=== PATIENT | female | born 1985 | race Caucasian/White ===

== ENCOUNTER 2016-04-10 14:38 | Outpatient (CLI) | payer OTHER ==
--- NOTE | 2016-04-10 16:25 | DIAGNOSTIC IMAGING REPORT ---
PROCEDURE: US COMPLETE PELVIC W/TRANSVAG INDICATION: Left pelvic pain, initial encounter TECHNIQUE: Transabdominal and endovaginal vu scale and color Doppler sonographic images of the female pelvis were obtained. COMPARISON: None. FINDINGS: TRANSABDOMINAL SCANS: Anteverted uterus measures 7.1 x 3.7 x 3.2 cm. Normal kidneys. TRANSVAGINAL SCANS: Myometrium is unremarkable. Normal endometrium measures 8.3 mm. Left ovary measures 2.7 x 1.4 x 2 cm with a 1.1 cm paraovarian cyst. There is a small amount of adjacent free fluid. Right ovary not visualized. No adnexal mass. IMPRESSION: 1. 1.1 cm left paraovarian cyst with small amount of adjacent free fluid 2. Right ovary not visualized
== END 2016-04-10 23:00 ==
LOC: US SRH 14:38
DX: N83.202 Unspecified ovarian cyst, left side (principal)

== ENCOUNTER 2016-04-16 07:55 | Outpatient (CLI) | payer OTHER ==
--- NOTE | 2016-04-16 10:04 | DIAGNOSTIC IMAGING REPORT ---
PROCEDURE: US ABDOMEN ULTRASOUND-COMPLETE INDICATION: ABD PAIN, initial encounter TECHNIQUE: Mcallister scale and color Doppler sonographic images of the abdomen were obtained. COMPARISON: Abdominal ultrasound 08/17/2015 FINDINGS: Liver, spleen, pancreas and gallbladder are normal. Normal CBD, 3 mm. Aorta and IVC are patent. Normal hepatopetal flow. Normal kidneys. Right kidney measures 11.1 cm and left kidney 12.6 cm. Ultrasound of the left lower quadrant (symptomatic area) shows no significant findings. IMPRESSION: 1. Normal abdominal ultrasound
== END 2016-04-16 23:00 ==
LOC: US SRH 07:55
DX: R10.9 Unspecified abdominal pain (principal)

== ENCOUNTER 2016-10-26 19:41 | Emergency (ER) | payer OTHER ==
--- NOTE | 2016-10-26 22:31 | DIAGNOSTIC IMAGING REPORT ---
PROCEDURE: US ABDOMEN ULTRASOUND-LIMITED INDICATION: Right abdominal pain. Nausea. Vomiting. TECHNIQUE: Mcallister scale and color Doppler sonographic images of the abdomen were obtained. COMPARISON: Compared to abdominal ultrasound 04/16/2016. FINDINGS: Gallbladder is normal. No evidence of gallstones. Common duct is normal (3 mm). Portions of the liver, pancreas, aorta, and right kidney are seen, and are normal. IMPRESSION: 1. Negative ultrasound of the gallbladder and right upper quadrant.
--- NOTE | 2016-10-26 22:33 | ED CLINICAL REPORT ---
Clinical Report - Physicians/Mid Levels [facility] [address] [place] [address] 10/26/2016 19:43 Patient: JANIS SOMMERS Time Seen: 19:57; initial patient contact, initial documentation, patient care assumed. Arrived- By private vehicle. Historian- patient. HISTORY OF PRESENT ILLNESS Chief Complaint: ABDOMINAL PAIN. This started today and is still present. It was abrupt in onset and has been constant. At its maximum, severity described as moderate. When seen in the E.D., severity described as moderate. Modifying factors. Not worsened by anything. Not relieved by anything. It is described as "pain", stabbing and cramping and it is described as located in the right upper quadrant, right abdomen and right lower quadrant. The patient has had nausea. No loss of appetite. She has had severe vomiting. The vomiting has occurred numerous times and has been bilious. No feculent emesis, blood-tinged emesis, coffee-grounds emesis, frankly bloody emesis or unusually dark emesis. She has had diarrhea. This has occurred numerous times. It has been watery and has been associated with cramps. No bloody, mucous containing or blood-tinged diarrhea. No recent travel. Similar symptoms previously: None. Recent medical care: Not recently seen/assessed. REVIEW OF SYSTEMS No constipation, black stools, hematemesis, difficulty with urination or pain with urination. No urinary frequency, abnormal bleeding, bloody stools, fever or chest pain. No difficulty breathing. Denies current . All systems otherwise negative, except as recorded above. PAST HISTORY See nurses notes. PROBLEMS: Fibromyalgia. --20:03 Alize Cochran. SOCIAL HISTORY Never smoker. Occasional alcohol use. No drug use. No recent travel. Is a local resident. FAMILY HISTORY Negative. ADDITIONAL NOTES The nursing notes have been reviewed with agreement regarding the chief complaint, HPI, ROS, PMH and patient medications and allergies. PHYSICAL EXAM Vital Signs: 10/26/2016 20:04 BP: 131/81. HR: 91. RR: 17. O2 saturation: 99%. Temp: 99.7 F. Have been reviewed as normal and appear to be correct. Appearance: Alert. Oriented X3. No acute distress. Eyes: Pupils equal, round and reactive to light. Eyes normal inspection. Neck: Normal inspection. Neck supple. CVS: Normal heart rate and rhythm. Heart sounds normal. Pulses normal. Respiratory: No respiratory distress. Breath sounds normal. Chest nontender. Abdomen: Soft. Mild tenderness in the right upper quadrant, right side of the abdomen and right lower quadrant. No guarding, rebound tenderness or Lei's, obturator or psoas sign present. Bowel sounds normal. No organomegaly. No mass. Mildly obese. Tenderness present. Back: Normal inspection. Skin: Skin warm and dry. Normal skin color. No rash. Normal skin turgor. Extremities: Extremities exhibit normal ROM. No lower extremity edema. Neuro: Oriented X 3. No motor deficit. No sensory deficit. LABS, X-RAYS, AND EKG Abdominal Sonogram: No acute disease. (verbal report given by [employer]). Interpretation time: 22:04. Laboratory Tests: Serum Qualitative: (PATRICE: 10/26/2016 20:25) ( [facility] [place] 21:08) Final results Test Result Flag Units (Reference) , SERUM NEGATIVE CBC w Diff: (PATRICE: 10/26/2016 20:25) ( [facility] [place] 20:48[place] Final results Test Result Flag Units (Reference) WHITE BLOOD COUNT 12.8 H K/uL (4.5-11.5) RED BLOOD COUNT 4.84 M/uL (4.00-5.20) HEMOGLOBIN 14.3 gm/dL (12.0-16.0) HEMATOCRIT 42.6 % (36.0-46.0) MEAN CELL VOLUME 88 fL (80-100) MEAN CORPUSCULAR HGB 30 pg (26-34) MEAN CORPUSCULAR HGB CONC 34 g/dL (31-37) RED CELL DISTRIBUTION WIDTH 12.7 % (11.6-14.8) PLATELET COUNT 305 K/uL (150-400) NEUTROPHIL % 84.8 H % (50-75) LYMPH % 7.5 L % (25-40) MONO % 5.2 % (3-14) EOSINOPHIL % 2.4 % (0-4) BASOPHIL % 0.1 % (0-2) Lipase: (PATRICE: 10/26/2016 20:25) ( [facility] [place] 21:12) Final results Test Result Flag Units (Reference) LIPASE 444 H U/L (73-393) AMYLASE 103 U/L (25-115) CMP: (PATRICE: 10/26/2016 20:25) ( [facility] [place]/26/2016 20:56) Final results Test Result Flag Units (Reference) GLUCOSE 89 mg/dL (70-110) BUN 15 mg/dL (7-18) CREATININE 0.6 mg/dL (0.6-1.3) Estimated GFR >60 mL/min Estimated GFR- >60 mL/min Note: Persistent reduction over 3 months in eGFR<60 mL/min/1.73 m2 defines CKD. Patients with eGFR values>=60 mL/min/1.73 m2 may also have CKD if evidence ofpersistent proteinuria. Additional information may be foundat www.kidney.org. SODIUM 143 mmol/L (136-145) POTASSIUM 4.0 mmol/L (3.5-5.1) CHLORIDE 105 mmol/L (98-107) CARBON DIOXIDE 25 mmol/L (21-32) CALCIUM 8.8 mg/dL (8.5-10.1) TOTAL PROTEIN 7.5 g/dL (6.4-8.2) ALBUMIN 3.8 g/dL (3.3-5.0) BILIRUBIN, TOTAL 0.2 mg/dL (0.0-1.0) ALKALINE PHOSPHATASE 76 U/L (46-116) AST (SGOT) 18 U/L (15-37) ALT (SGPT) 24 U/L (12-78) . PROGRESS AND PROCEDURES Patient counseled in person regarding the patient's stable condition, test results and diagnosis. Differential Diagnosis: I considered gastritis, peptic ulcer disease, gastroesophageal reflux disease, gastroparesis, Crohn's disease, ulcerative colitis, colonic obstruction, colon cancer, gastroenteritis, cholecystitis, pancreatitis, viral syndrome, enterocolitis, urinary tract infection, hepatitis, sepsis, drugs, hyperthyroidism, hyperparathyroidism and as a possible cause of vomiting in this patient. This is a partial list of diagnoses considered. Above considerations are based on history, physical exam, reassessment, laboratory data and other information. Differential diagnosis was discussed with patient. Disposition: Discharged home in good and improved condition (22:33). Condition: good and stable. CLINICAL IMPRESSION Acute noninfectious gastroenteritis. INSTRUCTIONS Take clear liquids only (frequent sips) for the next 24 hours until better. May continue medications with sips only. Advance diet as tolerated. No alcohol. Warnings: GENERAL WARNINGS: Return or contact your physician immediately if your condition worsens or changes unexpectedly, if not improving as expected, or if other problems arise. SPECIFICALLY, return if you develop pain in the abdomen or pelvis, fever, the inability to keep fluids down, blood in vomitus, blood in diarrhea, fainting or lightheadedness. Prescription Medications: Zofran 4 mg: Take 1 orally every six hours as needed for nausea/vomiting. Dispense ten (10). No refills. Substitution is permissible. Bentyl 20 mg tablets: take 1 orally every 6 hours as needed. Dispense thirty (30). No refills. Substitution is permissible. Ultram 50 mg tablets: take 1-2 orally every 6 hours as needed for pain. Dispense twenty (20). No refills. Substitution is permissible. Follow-up: Follow up with your doctor in about two days. Call for an appointment. Summary of care provided to patient. Understanding of the discharge instructions verbalized by patient. (Electronically signed by Camila English A.R.N.P. 10/26/2016 22:55)
--- NOTE | 2016-10-26 22:33 | ED CLINICAL REPORT ---
Clinical Report - Physicians/Mid Levels [facility] [address] [place] [address] 10/26/2016 19:43 Patient: JANIS SOMMERS Time Seen: 19:57; initial patient contact, initial documentation, patient care assumed. Arrived- By private vehicle. Historian- patient. HISTORY OF PRESENT ILLNESS Chief Complaint: ABDOMINAL PAIN. This started today and is still present. It was abrupt in onset and has been constant. At its maximum, severity described as moderate. When seen in the E.D., severity described as moderate. Modifying factors. Not worsened by anything. Not relieved by anything. It is described as "pain", stabbing and cramping and it is described as located in the right upper quadrant, right abdomen and right lower quadrant. The patient has had nausea. No loss of appetite. She has had severe vomiting. The vomiting has occurred numerous times and has been bilious. No feculent emesis, blood-tinged emesis, coffee-grounds emesis, frankly bloody emesis or unusually dark emesis. She has had diarrhea. This has occurred numerous times. It has been watery and has been associated with cramps. No bloody, mucous containing or blood-tinged diarrhea. No recent travel. Similar symptoms previously: None. Recent medical care: Not recently seen/assessed. REVIEW OF SYSTEMS No constipation, black stools, hematemesis, difficulty with urination or pain with urination. No urinary frequency, abnormal bleeding, bloody stools, fever or chest pain. No difficulty breathing. Denies current . All systems otherwise negative, except as recorded above. PAST HISTORY See nurses notes. PROBLEMS: Fibromyalgia. --20:03 Alize Cochran. SOCIAL HISTORY Never smoker. Occasional alcohol use. No drug use. No recent travel. Is a local resident. FAMILY HISTORY Negative. ADDITIONAL NOTES The nursing notes have been reviewed with agreement regarding the chief complaint, HPI, ROS, PMH and patient medications and allergies. PHYSICAL EXAM Vital Signs: 10/26/2016 20:04 BP: 131/81. HR: 91. RR: 17. O2 saturation: 99%. Temp: 99.7 F. Have been reviewed as normal and appear to be correct. Appearance: Alert. Oriented X3. No acute distress. Eyes: Pupils equal, round and reactive to light. Eyes normal inspection. Neck: Normal inspection. Neck supple. CVS: Normal heart rate and rhythm. Heart sounds normal. Pulses normal. Respiratory: No respiratory distress. Breath sounds normal. Chest nontender. Abdomen: Soft. Mild tenderness in the right upper quadrant, right side of the abdomen and right lower quadrant. No guarding, rebound tenderness or Lei's, obturator or psoas sign present. Bowel sounds normal. No organomegaly. No mass. Mildly obese. Tenderness present. Back: Normal inspection. Skin: Skin warm and dry. Normal skin color. No rash. Normal skin turgor. Extremities: Extremities exhibit normal ROM. No lower extremity edema. Neuro: Oriented X 3. No motor deficit. No sensory deficit. LABS, X-RAYS, AND EKG Abdominal Sonogram: No acute disease. (verbal report given by [employer] Interpretation time: 22:04. Laboratory Tests: Serum Qualitative: (PATRICE: 10/26/2016 20:25) ( [facility] [place] 21:08) Final results Test Result Flag Units (Reference) , SERUM NEGATIVE CBC w Diff: (PATRICE: 10/26/2016 20:25) ( [facility] [place] 20:48) Final results Test Result Flag Units (Reference) WHITE BLOOD COUNT 12.8 H K/uL (4.5-11.5) RED BLOOD COUNT 4.84 M/uL (4.00-5.20) HEMOGLOBIN 14.3 gm/dL (12.0-16.0) HEMATOCRIT 42.6 % (36.0-46.0) MEAN CELL VOLUME 88 fL (80-100) MEAN CORPUSCULAR HGB 30 pg (26-34) MEAN CORPUSCULAR HGB CONC 34 g/dL (31-37) RED CELL DISTRIBUTION WIDTH 12.7 % (11.6-14.8) PLATELET COUNT 305 K/uL (150-400) NEUTROPHIL % 84.8 H % (50-75) LYMPH % 7.5 L % (25-40) MONO % 5.2 % (3-14) EOSINOPHIL % 2.4 % (0-4) BASOPHIL % 0.1 % (0-2) Lipase: (PATRICE: 10/26/2016 20:25) ( [facility] [place] 21:12) Final results Test Result Flag Units (Reference) LIPASE 444 H U/L (73-393) AMYLASE 103 U/L (25-115) CMP: (PATRICE: 10/26/2016 20:25) ( [facility] [place]26[place] 20:56) Final results Test Result Flag Units (Reference) GLUCOSE 89 mg/dL (70-110) BUN 15 mg/dL (7-18) CREATININE 0.6 mg/dL (0.6-1.3) Estimated GFR >60 mL/min Estimated GFR- >60 mL/min Note: Persistent reduction over 3 months in eGFR<60 mL/min/1.73 m2 defines CKD. Patients with eGFR values>=60 mL/min/1.73 m2 may also have CKD if evidence ofpersistent proteinuria. Additional information may be foundat www.kidney.org. SODIUM 143 mmol/L (136-145) POTASSIUM 4.0 mmol/L (3.5-5.1) CHLORIDE 105 mmol/L (98-107) CARBON DIOXIDE 25 mmol/L (21-32) CALCIUM 8.8 mg/dL (8.5-10.1) TOTAL PROTEIN 7.5 g/dL (6.4-8.2) ALBUMIN 3.8 g/dL (3.3-5.0) BILIRUBIN, TOTAL 0.2 mg/dL (0.0-1.0) ALKALINE PHOSPHATASE 76 U/L (46-116) AST (SGOT) 18 U/L (15-37) ALT (SGPT) 24 U/L (12-78) . PROGRESS AND PROCEDURES Patient counseled in person regarding the patient's stable condition, test results and diagnosis. Differential Diagnosis: I considered gastritis, peptic ulcer disease, gastroesophageal reflux disease, gastroparesis, Crohn's disease, ulcerative colitis, colonic obstruction, colon cancer, gastroenteritis, cholecystitis, pancreatitis, viral syndrome, enterocolitis, urinary tract infection, hepatitis, sepsis, drugs, hyperthyroidism, hyperparathyroidism and as a possible cause of vomiting in this patient. This is a partial list of diagnoses considered. Above considerations are based on history, physical exam, reassessment, laboratory data and other information. Differential diagnosis was discussed with patient. Disposition: Discharged home in good and improved condition (22:33). Condition: good and stable. CLINICAL IMPRESSION Acute noninfectious gastroenteritis. INSTRUCTIONS Take clear liquids only (frequent sips) for the next 24 hours until better. May continue medications with sips only. Advance diet as tolerated. No alcohol. Warnings: GENERAL WARNINGS: Return or contact your physician immediately if your condition worsens or changes unexpectedly, if not improving as expected, or if other problems arise. SPECIFICALLY, return if you develop pain in the abdomen or pelvis, fever, the inability to keep fluids down, blood in vomitus, blood in diarrhea, fainting or lightheadedness. Prescription Medications: Zofran 4 mg: Take 1 orally every six hours as needed for nausea/vomiting. Dispense ten (10). No refills. Substitution is permissible. Bentyl 20 mg tablets: take 1 orally every 6 hours as needed. Dispense thirty (30). No refills. Substitution is permissible. Ultram 50 mg tablets: take 1-2 orally every 6 hours as needed for pain. Dispense twenty (20). No refills. Substitution is permissible. Follow-up: Follow up with your doctor in about two days. Call for an appointment. Summary of care provided to patient. Understanding of the discharge instructions verbalized by patient. (Electronically signed by Camila English A.R.N.P. 10/26/2016 22:55)
--- NOTE | 2016-10-26 22:33 | ED ORDER SUMMARY ---
..... Patient: JANIS SOMMERS OrderSheet [facility] VisitID: [id number] [place] [address] 31y, F Registration Date/Time: 10/26/2016 ORDER SHEET Weight: 104.3 kg (stated) Allergies: None GENERAL ORDERS: CBC w Diff Urgent (20:28 10/26/2016 ASchmuck per protocol) (Ack 20:33 CHagerty [facility] [employer]) (20:33 CHagerty [facility] [employer]) CMP Urgent (20:28 10/26/2016 ASchmuck per protocol) (Ack 20:33 CHagerty [facility] [employer]) (20:33 CHagerty [facility] [employer]) Amylase Urgent (20:56 10/26/2016 HBivens A.R.N.P.) (21:11 CHagerty [facility] [employer]) Lipase Urgent (20:56 10/26/2016 HBivens A.R.N.P.) (21:11 CHagerty [facility] [employer]) UA-Culture if indicated Urgent (20:56 10/26/2016 HBivens A.R.N.P.) (Ack 21:11 CHagerty [facility] [employer]) (Cancelled: Unable to [id number] AScuck) Serum Qualitative Urgent (20:56 10/26/2016 HBivens A.R.N.P.) (21:11 CHagerty [facility] [employer]) US Abdomen Limited (No) Urgent (21:19 10/26/2016 HBivens A.R.N.P.) (Ack 21:24 CHagerty [facility] [employer]) (22:34 [place]) MEDICATION ORDERS: IV FLUIDS: IV NS : initial bolus 1000 mL (1000 mL/hr), then none - (NOW) (20:55 10/26/2016 HBivens A.R.N.P.) (Ack 21:00 ASchmuck) (21:14 ASchmuck) Zofran IV 4 mg (NOW) (20:55 10/26/2016 HBivens A.R.N.P.) (Ack 21:00 ASchmuck) (21:15 ASchmuck) Toradol IV 30 mg (NOW) (20:55 10/26/2016 HBivens A.R.N.P.) (Ack 21:00 ASchmuck) (21:14 ASchmuck) ORDER SHEET NOTES: [Electronically signed by Alize Cochran (22:48 10/26/2016)] [Electronically signed by Camila EnglishN.PAgustin (22:55 10/26/2016)] [Electronically locked/signed by Alize Cochran (22:48 10/26/2016)]
--- NOTE | 2016-10-26 22:33 | ED NURSING NOTES ---
Clinical Report - Nurses Located Within [facility] [address] [place] [address] 10/26/2016 19:43 [id number] Triage time 19:55 Oct 26 2016. Acuity: LEVEL 3. Chief Complaint: ABDOMINAL PAIN, NAUSEA, VOMITING and DIARRHEA. 20:04 10/26/16. Alert. No acute distress. SEPSIS SCREEN: Sepsis Screen. Negative (no infection suspected/documented). FLACA COMA SCORE: Flaca Coma Scale: 15- eyes open spontaneously (4); best verbal response- oriented x 4 (5); best motor response- obeys commands (6). --20:04 Alize Cochran 20:04 10/26/16. BP: 131/81. HR: 91. RR: 17. O2 saturation: 99%. Temp: 99.7 F. Pain level now 410. --20:04 Alize Cochran. Weight: 104.3 kg stated. Height/Length: 66 inches Per Patient. BMI: 37.1. --20:03 Alize Cochran. Medications ZyrTEC-D Allergy & Congestion Oral. --20:02 Alize Cochran. Medication/allergy information source: the patient. --20:04 Alize Cochran. Allergies None. --20:02 Alize Cochran. History Arrived by private vehicle. Historian: patient. Accompanied by father. Primary physician ([facility]). Onset. (Saturday). Describes the quality as stabbing and cramping. Relates location as in the right and left upper quadrant, upper abdomen and right lower quadrant. ( Pt reports that she had pain that started on Saturday and has gotten worse. Pt has been vomiting often and had diarrhea. Describes pain as in the upper abdominal area, but also descends to RLQ.). She has had a subjective fever, nausea, vomiting, diarrhea and abdominal pain. Last oral intake by patient was (sips of water from 9339-1028. Coffee at noon that came back up. Soup at 1100 that came back up.). Treatment BIOSTATISTICIAN: None. PAST MEDICAL HX: Immunizations: up-to-date. Last normal menstrual period was 1 week ago. Not sexually active. SOCIAL HX: Never smoker. Occasional alcohol use. No drug use. No recent travel. No known contact with a sick individual. FALL RISK ASSESSMENT: Fall risk assessment completed. No fall risk identified. NUTRITIONAL RISK ASSESSMENT: The nutritional risk assessment revealed no deficiencies. FUNCTIONAL ASSESSMENT: Functional assessment: no impairments noted. LEARNING NEEDS ASSESSMENT: The learning needs assessment revealed no barriers. SKIN INTEGRITY ASSESSMENT: Skin integrity risk assessment completed. No skin integrity risk identified. --20:04 Alize Cochran. PROBLEMS: Fibromyalgia. --20:03 Alize Cochran. Assessment The patient states feels the same. --20:04 Alize Cochran. Interventions ID band on patient. --20:04 Alize Cochran. PHYSICAL ASSESSMENT 20:10/26/16. Ambulatory to room. Patient gowned. GENERAL / NEURO / PSYCH: Alert. Oriented X 4. Appears in no acute distress. HEENT: Mucous membranes are pink. RESPIRATORY: Respirations not labored. CVS: Capillary refill less than 2 seconds. GI / : Abdomen soft. Abdominal tenderness in the right upper quadrant, epigastric area, left upper quadrant and right lower quadrant. SKIN: Skin is warm and dry. --20:04 Alize Cochran. NURSING PROGRESS NOTES 20:10/26/16. The plan of care for this patient has been created. Pulse oximeter and NIBP monitor placed on patient; monitor alarms on. Patient gowned. Head of bed elevated. Reassurance given. Two patient identifiers checked. Call light placed in reach. Side rails up x 1. Bed placed in lowest position. Brakes of bed on. Patient ready for evaluation- chart flagged and ED physician and BEAUTY OPERATOR notified. --20:04 Alize Cochran 20:10/26/2016 Two (2) unsuccessful IV access attempts including the right antecubital space and left antecubital space. Applied pressure dressing. --20:22 Alize Cochran 20:10/26/2016 Site #1 started via IV in the left hand with an 20g angiocath, with aseptic technique and good blood return; one attempt. Blood drawn: rainbow set. Labeled in the presence of the patient and sent to the lab. Saline lock flushed with 10 mL saline. --20:26 Alize Cochran 21:10/26/2016 Started bag #1 1000 mL IV Fluids IV NS (Saline); at 1000 mL/hr over 1 hour(s) via site #1 via IV pump. Allergies verified and confirmed 5 rights. IV patency established. IV site checked: no pain, redness, or swelling. IV flushed thoroughly pre- and post-medication administration. --21:14 Alize Cochran 21:10 10/26/2016 Toradol IVP 30 mg given over 1 minute(s) via site #1. Allergies verified and confirmed 5 rights. IV patency established. IV site checked: no pain, redness, or swelling. IV flushed thoroughly pre- and post-medication administration. IVP given by RN. --21:14 Alize Cochran 21:13 10/26/2016 Zofran (Ondansetron HCl) IVP 4 mg given over 1 minute(s) via site #1. Allergies verified and confirmed 5 rights. IV patency established. IV site checked: no pain, redness, or swelling. IV flushed thoroughly pre- and post-medication administration. IVP given by RN. --21:15 Alize Cochran 21:47 10/26/16. BP: 108/73. HR: 75. RR: 16. O2 saturation: 100%. --21:48 Robe Leyva RAgustinNAgustin ( Patient getting her ultrasound at present.). --21:48 Robe Leyva R.N. 22:10/26/2016 IV Fluids IV NS Discontinued: bag #1 infused. Total amount infused: 1000 mL. IV patency established. IV site checked: no pain, redness, or swelling. IV flushed thoroughly. --22:46 Alize Cochran 22:46 10/26/2016 Site #1 removed upon discharge. Catheter intact. Pressure dressing applied. --22:46 Alize Ccohran. DISPOSITION / DISCHARGE 22:45 10/26/16. Departure time: 22:45 Oct 26 2016. Condition at departure: improved. The goals identified in the patient's plan of care were met. No learning barriers present. Discharge instructions provided and reviewed with the patient. Reviewed warnings (Patient verbalized understanding of sedation warning. Pt verbalized awareness of warning s/sx listed in dc paperwork.). Reviewed medication(s) precautions information. Prescription(s) given to the patient (Zofran, bentyl, ultram.). Treatments reviewed. Reviewed referral to a primary care physician for followup. Patient verbalized understanding. Written instructions provided in Dominican. The patient was discharged by the nurse practitioner. She was discharged home and accompanied by parent. She left the Emergency Department ambulatory and via private vehicle. Parent driving. FALL RISK ASSESSMENT: Fall risk assessment completed. No fall risk identified. FLACA COMA SCORE: Flaca Coma Scale: 15- eyes open spontaneously (4); best verbal response- oriented x 4 (5); best motor response- obeys commands (6). --22:45 Alize Cochran 22:38 10/26/16. BP: 107/61. HR: 81. RR: 14. O2 saturation: 100% on room air. Temp: 99.2 F (oral). Pain level now: 04/17. --22:45 Alize Cochran. Locked/Released at 10/26/2016 22:48 by Alize Cochran,
--- NOTE | 2016-10-26 22:33 | ED ORDER SUMMARY ---
..... Patient: JANIS SOMMERS OrderSheet [facility] VisitID: [id number] [place] [address] 31y, F Registration Date/Time: 10/26/2016 ORDER SHEET Weight: 104.3 kg (stated) Allergies: None GENERAL ORDERS: CBC w Diff Urgent (20:28 10/26/2016 ASchmuck per protocol) (Ack 20:33 [facility] Pediatric Cardiologist) (20:33 [facility] Pediatric Cardiologist) CMP Urgent (20:28 10/26/2016 ASchmuck per protocol) (Ack 20:33 [facility] Pediatric Cardiologist) (20:33 [facility] Pediatric Cardiologist) Amylase Urgent (20:56 10/26/2016 HBivens A.R.N.P.) (21:11 [facility] Pediatric Cardiologist) Lipase Urgent (20:56 10/26/2016 HBivens A.R.N.P.) (21:11 [facility] Pediatric Cardiologist) UA-Culture if indicated Urgent (20:56 10/26/2016 HBivens A.R.N.P.) (Ack 21:11 [facility] Pediatric Cardiologist) (Cancelled: Unable to Xgebawm08:46 AScuck) Serum Qualitative Urgent (20:56 10/26/2016 HBivens A.R.N.P.) (21:11 [facility] Pediatric Cardiologist) US Abdomen Limited (No) Urgent (21:19 10/26/2016 HBivens A.R.N.P.) (Ack 21:24 [facility] Pediatric Cardiologist) (22:34 [place]) MEDICATION ORDERS: IV FLUIDS: IV NS : initial bolus 1000 mL (1000 mL/hr), then none - (NOW) (20:55 10/26/2016 HBivens A.R.N.P.) (Ack 21:00 ASchmuck) (21:14 ASchmuck) Zofran IV 4 mg (NOW) (20:55 10/26/2016 HBivens A.R.N.P.) (Ack 21:00 ASchmuck) (21:15 ASchmuck) Toradol IV 30 mg (NOW) (20:55 10/26/2016 HBivens A.R.N.P.) (Ack 21:00 ASchmuck) (21:14 ASchmuck) ORDER SHEET NOTES: [Electronically signed by Alize Cochran (22:48 10/26/2016)] [Electronically signed by Camila EnglishN.PAgustin (22:55 10/26/2016)] [Electronically locked/signed by Alize Cochran (22:48 10/26/2016)]
--- NOTE | 2016-10-26 22:33 | ED NURSING NOTES ---
Clinical Report - Nurses [facility] [address] [place] [address] 10/26/2016 19:43 Patient: JANIS SOMMERS [facility] [id number] TRIAGE Triage time 19:55 Oct 26 2016. Acuity: LEVEL 3. Chief Complaint: ABDOMINAL PAIN, NAUSEA, VOMITING and DIARRHEA. 20:04 10/26/16. Alert. No acute distress. SEPSIS SCREEN: Sepsis Screen. Negative (no infection suspected/documented). FLACA COMA SCORE: Flaca Coma Scale: 15- eyes open spontaneously (4); best verbal response- oriented x 4 (5); best motor response- obeys commands (6). --20:04 Alize Cochran 20:04 10/26/16. BP: 131/81. HR: 91. RR: 17. O2 saturation: 99%. Temp: 99.7 F. Pain level now 410. --20:04 Alize Cochran. Weight: 104.3 kg stated. Height/Length: 66 inches Per Patient. BMI: 37.1. --20:03 Alize Cochran. Medications ZyrTEC-D Allergy & Congestion Oral. --20:02 Alize Cochran. Medication/allergy information source: the patient. --20:04 Alize Cochran. Allergies None. --20:02 Alize Cochran. History Arrived by private vehicle. Historian: patient. Accompanied by father. Primary physician ([facility]). Onset. (Saturday). Describes the quality as stabbing and cramping. Relates location as in the right and left upper quadrant, upper abdomen and right lower quadrant. ( Pt reports that she had pain that started on Saturday and has gotten worse. Pt has been vomiting often and had diarrhea. Describes pain as in the upper abdominal area, but also descends to RLQ.). She has had a subjective fever, nausea, vomiting, diarrhea and abdominal pain. Last oral intake by patient was (sips of water from 6669-0843. Coffee at noon that came back up. Soup at 1100 that came back up.). Treatment CONTINUITY TESTER: None. PAST MEDICAL HX: Immunizations: up-to-date. Last normal menstrual period was 1 week ago. Not sexually active. SOCIAL HX: Never smoker. Occasional alcohol use. No drug use. No recent travel. No known contact with a sick individual. FALL RISK ASSESSMENT: Fall risk assessment completed. No fall risk identified. NUTRITIONAL RISK ASSESSMENT: The nutritional risk assessment revealed no deficiencies. FUNCTIONAL ASSESSMENT: Functional assessment: no impairments noted. LEARNING NEEDS ASSESSMENT: The learning needs assessment revealed no barriers. SKIN INTEGRITY ASSESSMENT: Skin integrity risk assessment completed. No skin integrity risk identified. --20:04 Alize Cochran. PROBLEMS: Fibromyalgia. --20:03 Alize Cochran. Assessment The patient states feels the same. --20:04 Alize Cochran. Interventions ID band on patient. --20:04 Alize Cochran. PHYSICAL ASSESSMENT 20:10/26/16. Ambulatory to room. Patient gowned. GENERAL / NEURO / PSYCH: Alert. Oriented X 4. Appears in no acute distress. HEENT: Mucous membranes are pink. RESPIRATORY: Respirations not labored. CVS: Capillary refill less than 2 seconds. GI / : Abdomen soft. Abdominal tenderness in the right upper quadrant, epigastric area, left upper quadrant and right lower quadrant. SKIN: Skin is warm and dry. --20:04 Alize Cochran. NURSING PROGRESS NOTES 20:10/26/16. The plan of care for this patient has been created. Pulse oximeter and NIBP monitor placed on patient; monitor alarms on. Patient gowned. Head of bed elevated. Reassurance given. Two patient identifiers checked. Call light placed in reach. Side rails up x 1. Bed placed in lowest position. Brakes of bed on. Patient ready for evaluation- chart flagged and ED physician and VP PROJECT notified. --20:04 Alize Cochran 20:10/26/2016 Two (2) unsuccessful IV access attempts including the right antecubital space and left antecubital space. Applied pressure dressing. --20:22 Alize Cochran 20:10/26/2016 Site #1 started via IV in the left hand with an 20g angiocath, with aseptic technique and good blood return; one attempt. Blood drawn: rainbow set. Labeled in the presence of the patient and sent to the lab. Saline lock flushed with 10 mL saline. --20:26 Alize Cochran 21:10/26/2016 Started bag #1 1000 mL IV Fluids IV NS (Saline); at 1000 mL/hr over 1 hour(s) via site #1 via IV pump. Allergies verified and confirmed 5 rights. IV patency established. IV site checked: no pain, redness, or swelling. IV flushed thoroughly pre- and post-medication administration. --21:14 Alize Cochran 21:10 10/26/2016 Toradol IVP 30 mg given over 1 minute(s) via site #1. Allergies verified and confirmed 5 rights. IV patency established. IV site checked: no pain, redness, or swelling. IV flushed thoroughly pre- and post-medication administration. IVP given by RN. --21:14 Alize Cochran 21:13 10/26/2016 Zofran (Ondansetron HCl) IVP 4 mg given over 1 minute(s) via site #1. Allergies verified and confirmed 5 rights. IV patency established. IV site checked: no pain, redness, or swelling. IV flushed thoroughly pre- and post-medication administration. IVP given by RN. --21:15 Alize Cochran 21:47 10/26/16. BP: 108/73. HR: 75. RR: 16. O2 saturation: 100%. --21:48 Robe Leyva RAgustinNAgustin ( Patient getting her ultrasound at present.). --21:48 Robe Leyva R.N. 22:10/26/2016 IV Fluids IV NS Discontinued: bag #1 infused. Total amount infused: 1000 mL. IV patency established. IV site checked: no pain, redness, or swelling. IV flushed thoroughly. --22:46 Alize Cochran 22:46 10/26/2016 Site #1 removed upon discharge. Catheter intact. Pressure dressing applied. --22:46 Alize Cochran. DISPOSITION / DISCHARGE 22:45 10/26/16. Departure time: 22:45 Oct 26 2016. Condition at departure: improved. The goals identified in the patient's plan of care were met. No learning barriers present. Discharge instructions provided and reviewed with the patient. Reviewed warnings (Patient verbalized understanding of sedation warning. Pt verbalized awareness of warning s/sx listed in dc paperwork.). Reviewed medication(s) precautions information. Prescription(s) given to the patient (Zofran, bentyl, ultram.). Treatments reviewed. Reviewed referral to a primary care physician for followup. Patient verbalized understanding. Written instructions provided in [place]ican. The patient was discharged by the nurse practitioner. She was discharged home and accompanied by parent. She left the Emergency Department ambulatory and via private vehicle. Parent driving. FALL RISK ASSESSMENT: Fall risk assessment completed. No fall risk identified. FLACA COMA SCORE: Flaca Coma Scale: 15- eyes open spontaneously (4); best verbal response- oriented x 4 (5); best motor response- obeys commands (6). --22:45 Alize Cochran 22:38 10/26/16. BP: 107/61. HR: 81. RR: 14. O2 saturation: 100% on room air. Temp: 99.2 F (oral). Pain level now: 04/17. --22:45 Alize Cochran. Locked/Released at 10/26/2016 22:48 by Alize Cochran,
--- NOTE | 2016-10-26 22:55 | ED MAR SUMMARY ---
..... Medication Administration Record [facility] [address] [place] [address] Patient: JANIS SOMMERS Visit ID: [id number] 31y, F Weight: 104.3 kg Height/Length: 66 in BMI: 37.1 ALLERGIES: None Start 21:10/26/2016 Alize Cochran,, Stop 22:09 10/26/2016 Alize Cochran, Medication Administered: IV NS (SALINE), Dose: IV Fluids over 1 hour(s), Rate: 1000 mL/hr, Dispensed: 1000 mL bag, Site: #1 left hand. Medication Ordered: IV NS : initial bolus 1000 mL (1000 mL/hr), then none - (NOW). Given 21:10 10/26/2016 Alize Cochran, Medication Administered: TORADOL [IVP], Dose: 30 mg IVP over 1 minute(s), Site: #1 left hand. Medication Ordered: Toradol IV 30 mg (NOW). Given 21:13 10/26/2016 Alize Cochran, Medication Administered: ZOFRAN [IVP] (ONDANSETRON HCL), Dose: 4 mg IVP over 1 minute(s), Site: #1 left hand. Medication Ordered: Zofran IV 4 mg (NOW).
--- NOTE | 2016-10-26 22:55 | ED MAR SUMMARY ---
..... Medication Administration Record [facility] [address] [place] [address] Patient: JANIS SOMMERS Visit ID: [id number] 31y, F Weight: 104.3 kg Height/Length: 66 in BMI: 37.1 ALLERGIES: None Start 21:10/26/2016 Alize Cochran,, Stop 22:09 10/26/2016 Alize Cochran, Medication Administered: IV NS (SALINE), Dose: IV Fluids over 1 hour(s), Rate: 1000 mL/hr, Dispensed: 1000 mL bag, Site: #1 left hand. Medication Ordered: IV NS : initial bolus 1000 mL (1000 mL/hr), then none - (NOW). Given 21:10 10/26/2016 Alize Cochran, Medication Administered: TORADOL [IVP], Dose: 30 mg IVP over 1 minute(s), Site: #1 left hand. Medication Ordered: Toradol IV 30 mg (NOW). Given 21:13 10/26/2016 Alize Cochran, Medication Administered: ZOFRAN [IVP] (ONDANSETRON HCL), Dose: 4 mg IVP over 1 minute(s), Site: #1 left hand. Medication Ordered: Zofran IV 4 mg (NOW).
--- NOTE | 2016-10-26 22:55 | ED MED RECONCILIATION SUMMARY ---
Patient: JANIS SOMMERS Medication Reconciliation Report [facility] VisitID: [id number] [address] [place] [address] 31y, F Registration Date/Time: 10/26/2016 Weight: 104.3 kg Height/Length: 66 in. BMI: 37.1 ALLERGIES: None The patient's Home Medications are listed below: THE FOLLOWING MEDICATIONS NEED TO BE RECONCILED: ZyrTEC-D Allergy & Congestion Oral The source(s) of the original Home Medication information: patient The following Medications were given to the patient in the Emergency Department: IV NS IV Fluids bolus 0, then 1000 mL/hr, administered: 10/26/2016 9:09:00 PM Toradol [IVP] IVP 30 mg, administered: 10/26/2016 9:10:00 PM Zofran [IVP] IVP 4 mg, administered: 10/26/2016 9:13:00 PM The following Medications were prescribed to the patient: Zofran 4 mg: Take 1 orally every six hours as needed for nausea/vomiting. Dispense ten (10). No refills. Substitution is permissible. -- Camila English, A.R.N.P. Bentyl 20 mg tablets: take 1 orally every 6 hours as needed. Dispense thirty (30). No refills. Substitution is permissible. -- Camila English, A.R.N.P. Ultram 50 mg tablets: take 1-2 orally every 6 hours as needed for pain. Dispense twenty (20). No refills. Substitution is permissible. -- Camila English, A.R.N.P.
--- NOTE | 2016-10-26 22:55 | ED MED RECONCILIATION SUMMARY ---
Patient: JANIS SOMMERS Medication Reconciliation Report [facility] VisitID: [id number] [address] [place] [address] 31y, F Registration Date/Time: 10/26/2016 Weight: 104.3 kg Height/Length: 66 in. BMI: 37.1 ALLERGIES: None The patient's Home Medications are listed below: THE FOLLOWING MEDICATIONS NEED TO BE RECONCILED: ZyrTEC-D Allergy & Congestion Oral The source(s) of the original Home Medication information: patient The following Medications were given to the patient in the Emergency Department: IV NS IV Fluids bolus 0, then 1000 mL/hr, administered: 10/26/2016 9:09:00 PM Toradol [IVP] IVP 30 mg, administered: 10/26/2016 9:10:00 PM Zofran [IVP] IVP 4 mg, administered: 10/26/2016 9:13:00 PM The following Medications were prescribed to the patient: Zofran 4 mg: Take 1 orally every six hours as needed for nausea/vomiting. Dispense ten (10). No refills. Substitution is permissible. -- Camila English, A.R.N.P. Bentyl 20 mg tablets: take 1 orally every 6 hours as needed. Dispense thirty (30). No refills. Substitution is permissible. -- Camila English, A.R.N.P. Ultram 50 mg tablets: take 1-2 orally every 6 hours as needed for pain. Dispense twenty (20). No refills. Substitution is permissible. -- Camila English, A.R.N.P.
--- NOTE | 2016-10-26 22:55 | ED DISCHARGE INSTRUCTIONS ---
Patient: JANIS SOMMERS General Instructions [facility] VisitID: [id number] [place] [address] 31y, F Registration Date/Time: 10/26/2016 Acute noninfectious gastroenteritis. INSTRUCTIONS Take clear liquids only (frequent sips) for the next 24 hours until better. May continue medications with sips only. Advance diet as tolerated. No alcohol. Warnings: GENERAL WARNINGS: Return or contact your physician immediately if your condition worsens or changes unexpectedly, if not improving as expected, or if other problems arise. SPECIFICALLY, return if you develop pain in the abdomen or pelvis, fever, the inability to keep fluids down, blood in vomitus, blood in diarrhea, fainting or lightheadedness. Prescription Medications: Zofran 4 mg: Take 1 orally every six hours as needed for nausea/vomiting. Dispense ten (10). No refills. Substitution is permissible. Bentyl 20 mg tablets: take 1 orally every 6 hours as needed. Dispense thirty (30). No refills. Substitution is permissible. Ultram 50 mg tablets: take 1-2 orally every 6 hours as needed for pain. Dispense twenty (20). No refills. Substitution is permissible. Follow-up: Follow up with your doctor in about two days. Call for an appointment. Summary of care provided to patient. Understanding of the discharge instructions verbalized by patient. ADDITIONAL INFORMATION Gastroenteritis [Non-Infectious, 6 Yr-Adult] Your symptoms today are coming from the intestinal tract. This may occur as a result of food sensitivity, inflammation of the GI tract, medicines, stress or other causes not related to infection. This may last from 1-3 days. Antibiotics are not effective, but simple home treatment will be helpful. Home Care: If symptoms are severe, rest at home for the next 24 hours. You may use acetaminophen (Tylenol) or ibuprofen (Motrin, Advil) to control fever, unless another medicine was prescribed. [NOTE: If you have chronic liver or kidney disease or ever had a stomach ulcer or GI bleeding, talk with your doctor before using these medicines.] (Aspirin should never be used in anyone under 18 years of age who is ill with a fever. It may cause severe liver damage.) Avoid tobacco and alcohol use, which may make your symptoms worse. If medicines for diarrhea or vomiting were prescribed, take only as directed. Once vomiting stops, then follow these guidelines: During The First 12-24 Hours follow the diet below: gingerale, mineral water (plain or flavored), decaffeinated tea and coffee. During The Next 24 Hours you may add the following to the above: DURING THE NEXT 24 HOURS Gradually resume a normal diet, as you feel better and your symptoms lessen. Follow Up with your doctor as advised if you are not improving over the next 2-3 days. If a stool (diarrhea) sample was taken, you may call in 2 days (or as directed) for the results. Get Prompt Medical Attention if any of the following occur: Increasing abdominal pain or constant lower right abdominal pain Continued vomiting (unable to keep liquids down) Frequent diarrhea (more than 5 times a day) Blood in vomit or stool (black or red color) Reduced oral intake Dark urine, reduced urine output Weakness, dizziness, fainting Drowsiness, confusion, stiff neck or seizure Fever of 100.4F (38C) or higher, or as directed by your healthcare provider New rash Clear Liquid Diet Clear liquids are any liquid that you can see through as well as those that are very easy to digest. This is used while the body is recovering from irritation or infection of the stomach or intestinal tract. It may also be used before special procedures or surgery. This diet is to be used no more than three days. You may include the following items. Adults Adults should drink a total of 23 quarts of liquid per day. It may be easier to drink small frequent servings rather than a few large ones. Liquids can include: Fruit juices.Strained orange juice or lemonade (no pulp), apple, grape and cranberry juice, clear fruit drinks, sports drinks Beverages.Sport drinks, sodas, mineral water (plain or flavored), tea, black coffee, liquid gelatin (add twice the recommended amount of water) Soups.Clear broth, consomm, bouillon Desserts.Plain gelatin, popsicles, fruit juice bars Children Over 2 years old The following liquids are acceptable for children over age 2: Fruit juices.Strained orange juice or lemonade (no pulp), apple, grape and cranberry juice, clear fruit drinks Beverages. Sports drinks, sodas, mineral water (plain or flavored), tea, liquid gelatin (add twice the recommended amount of water) Soups. Clear broth, consomm, bouillon Desserts. Plain gelatin, popsicles, fruit juice bars Children under 2 years old Oral rehydration fluids such are available at drug stores and most grocery stores without a prescription. Harrell Diet A bland diet is used for patients with an upset stomach. It consists of foods that are mild and easy to digest. It is better to eat small frequent meals rather than three large meals a day. BEVERAGES OK: Fruit juices, non-caffeinated teas and coffee, non-carbonated monaco AVOID: Carbonated beverage, caffeinated tea and coffee, all alcoholic beverages BREAD OK: Refined white, wheat or rye bread, michelle or soda crackers, Crane toast, plain rolls, bagels AVOID: Whole-grain bread CEREAL OK: Refined cereals: cooked or ready to eat AVOID: Whole grain cereals and granola, or those containing bran, seeds or nuts DESSERTS OK: Peanut butter and all others except those to "avoid" AVOID: Chocolate, cocoa, coconut, popcorn, nuts, seeds, jam, marmalade FRUITS OK: Canned, cooked, frozen or fresh fruits without seeds or tough skin AVOID: Olives, skin and seeds of fruit MEATS OK: All fresh or preserved meat, fish and fowl AVOID: Any that are prepared with those spices to "avoid" CHEESE & EGGS OK: Eggs, cottage cheese, cream cheese, other cheeses AVOID: All cheeses made with those spices to "avoid" POTATOES & PASTA OK: Potato, rice, macaroni, noodles, spaghetti AVOID: None SOUPS OK: All soups without heavy seasoning AVOID: Soups made with those spices to "avoid" VEGETABLES OK: Canned, cooked, fresh or frozen mildly flavored vegetables without seeds, skins or coarse fiber AVOID: Vegetables prepared with those spices to "avoid"; skin and seeds of vegetables and those with coarse fiber SPICES OK: Salt, lemon and [place] juice, vinegar, all extracts, katia, cinnamon, thyme, mace, allspice, paprika AVOID: [place] powder, cloves, pepper, seed spices, garlic, gravy pickles, highly seasoned salad dressings Clear Liquid Diet Clear liquids are any liquid that you can see through as well as those that are very easy to digest. This is used while the body is recovering from irritation or infection of the stomach or intestinal tract. It may also be used before special procedures or surgery. This diet is to be used no more than three days. You may include the following items. Adults Adults should drink a total of 23 quarts of liquid per day. It may be easier to drink small frequent servings rather than a few large ones. Liquids can include: Fruit juices.Strained orange juice or lemonade (no pulp), apple, grape and cranberry juice, clear fruit drinks, sports drinks Beverages.Sport drinks, sodas, mineral water (plain or flavored), tea, black coffee, liquid gelatin (add twice the recommended amount of water) Soups.Clear broth, consomm, bouillon Desserts.Plain gelatin, popsicles, fruit juice bars Children Over 2 years old The following liquids are acceptable for children over age 2: Fruit juices.Strained orange juice or lemonade (no pulp), apple, grape and cranberry juice, clear fruit drinks Beverages. Sports drinks, sodas, mineral water (plain or flavored), tea, liquid gelatin (add twice the recommended amount of water) Soups. Clear broth, consomm, bouillon Desserts. Plain gelatin, popsicles, fruit juice bars Children under 2 years old Oral rehydration fluids such are available at drug stores and most grocery stores without a prescription. Ondansetron Oral disintegrating tablet What is this medicine? ONDANSETRON (on EDU se jen) is used to treat nausea and vomiting caused by chemotherapy. It is also used to prevent or treat nausea and vomiting after surgery. How should I use this medicine? These tablets are made to dissolve in the mouth. Do not try to push the tablet through the foil backing. With dry hands, peel away the foil backing and gently remove the tablet. Place the tablet in the mouth and allow it to dissolve, then swallow. While you may take these tablets with water, it is not necessary to do so. Talk to your mangle feeder regarding the use of this medicine in children. Special care may be needed. What side effects may I notice from receiving this medicine? Side effects that you should report to your doctor or health animal daycare provider as soon as possible: allergic reactions like skin rash, itching or hives, swelling of the face, lips, or tongue breathing problems dizziness fast or irregular heartbeat feeling faint or lightheaded, falls fever and chills swelling of the hands and feet tightness in the chest Side effects that usually do not require medical attention (report to your doctor or health animal daycare provider if they continue or are bothersome): constipation or diarrhea headache What may interact with this medicine? Do not take this medicine with any of the following medications: -apomorphine -cisapride -dofetilide -dronedarone -pimozide -thioridazine -ziprasidone This medicine may also interact with the following medications: -carbamazepine -phenytoin -rifampicin -tramadol -other medicines that prolong the QT interval (cause an abnormal heart rhythm) What if I miss a dose? If you miss a dose, take it as soon as you can. If it is almost time for your next dose, take only that dose. Do not take double or extra doses. Where should I keep my medicine? Keep out of the reach of children. Store between 2 and 30 degrees C (36 and 86 degrees F). Throw away any unused medicine after the expiration date. What should I tell my health care provider before I take this medicine? They need to know if you have any of these conditions: heart disease history of irregular heartbeat liver disease low levels of magnesium or potassium in the blood an unusual or allergic reaction to ondansetron, granisetron, other medicines, foods, dyes, or preservatives or trying to get breast-feeding What should I watch for while using this medicine? Check with your doctor or health animal daycare provider as soon as you can if you have any sign of an allergic reaction. Dicyclomine Hydrochloride Oral tablet What is this medicine? DICYCLOMINE (dye LANE penn) is used to treat bowel problems including irritable bowel syndrome. How should I use this medicine? Take this medicine by mouth with a glass of water. Follow the directions on the prescription label. It is best to take this medicine on an empty stomach, 30 minutes to 1 hour before meals. Take your medicine at regular intervals. Do not take your medicine more often than directed. Talk to your mangle feeder regarding the use of this medicine in children. Special care may be needed. While this drug may be prescribed for children as young as 6 months of age for selected conditions, precautions do apply. Patients over 65 years old may have a stronger reaction and need a smaller dose. What side effects may I notice from receiving this medicine? Side effects that you should report to your doctor or health animal daycare provider as soon as possible: agitation, nervousness, confusion difficulty swallowing dizziness, drowsiness fast or slow heartbeat hallucinations pain or difficulty passing urine Side effects that usually do not require medical attention (report to your doctor or health animal daycare provider if they continue or are bothersome): constipation headache nausea or vomiting sexual difficulty What may interact with this medicine? amantadine antacids benztropine digoxin disopyramide medicines for allergies, colds and breathing difficulties medicines for alzheimer's disease medicines for anxiety or sleeping problems medicines for depression or psychotic disturbances medicines for diarrhea medicines for pain metoclopramide tegaserod What if I miss a dose? If you miss a dose, take it as soon as you can. If it is almost time for your next dose, take only that dose. Do not take double or extra doses. Where should I keep my medicine? Keep out of the reach of children. Store at room temperature below 30 degrees C (86 degrees F). Protect from light. Throw away any unused medicine after the expiration date. What should I tell my health care provider before I take this medicine? They need to know if you have any of these conditions: difficulty passing urine esophagus problems or heartburn glaucoma heart disease, or previous heart attack myasthenia gravis prostate trouble stomach infection, or obstruction ulcerative colitis an unusual or allergic reaction to dicyclomine, other medicines, foods, dyes, or preservatives or trying to get breast-feeding What should I watch for while using this medicine? You may get drowsy, dizzy, or have blurred vision. Do not drive, use machinery, or do anything that needs mental alertness until you know how this medicine affects you. To reduce the risk of dizzy or fainting spells, do not sit or stand up quickly, especially if you are an older patient. Alcohol can make you more drowsy, avoid alcoholic drinks. Stay out of bright light and wear sunglasses if this medicine makes your eyes more sensitive to light. Avoid extreme heat (hot tubs, saunas). This medicine can cause you to sweat less than normal. Your body temperature could increase to dangerous levels, which may lead to heat stroke. Antacids can stop this medicine from working. If you get an upset stomach and want to take an antacid, make sure there is an interval of at least 1 to 2 hours before or after you take this medicine. Your mouth may get dry. Chewing sugarless gum or sucking hard candy, and drinking plenty of water may help. Contact your doctor if the problem does not go away or is severe. Tramadol Hydrochloride Oral tablet What is this medicine? TRAMADOL (TRA ma dole) is a pain reliever. It is used to treat moderate to severe pain in adults. How should I use this medicine? Take this medicine by mouth with a full glass of water. Follow the directions on the prescription label. If the medicine upsets your stomach, take it with food or milk. Do not take more medicine than you are told to take. Talk to your mangle feeder regarding the use of this medicine in children. Special care may be needed. What side effects may I notice from receiving this medicine? Side effects that you should report to your doctor or health animal daycare provider as soon as possible: allergic reactions like skin rash, itching or hives, swelling of the face, lips, or tongue breathing difficulties, wheezing confusion itching light headedness or fainting spells redness, blistering, peeling or loosening of the skin, including inside the mouth seizures Side effects that usually do not require medical attention (report to your doctor or health animal daycare provider if they continue or are bothersome): constipation dizziness drowsiness headache nausea, vomiting What may interact with this medicine? Do not take this medicine with any of the following medications: MAOIs like Carbex, Eldepryl, Marplan, Nardil, and Parnate This medicine may also interact with the following medications: alcohol or medicines that contain alcohol antihistamines benzodiazepines bupropion carbamazepine or oxcarbazepine clozapine cyclobenzaprine digoxin furazolidone linezolid medicines for depression, anxiety, or psychotic disturbances medicines for migraine headache like almotriptan, eletriptan, frovatriptan, naratriptan, rizatriptan, sumatriptan, zolmitriptan medicines for pain like pentazocine, buprenorphine, butorphanol, meperidine, nalbuphine, and propoxyphene medicines for sleep muscle relaxants naltrexone phenobarbital phenothiazines like perphenazine, thioridazine, chlorpromazine, mesoridazine, fluphenazine, prochlorperazine, promazine, and trifluoperazine procarbazine warfarin What if I miss a dose? If you miss a dose, take it as soon as you can. If it is almost time for your next dose, take only that dose. Do not take double or extra doses. Where should I keep my medicine? Keep out of the reach of children. Store at room temperature between 15 and 30 degrees C (59 and 86 degrees F). Keep container tightly closed. Throw away any unused medicine after the expiration date. What should I tell my health care provider before I take this medicine? They need to know if you have any of these conditions: brain tumor depression drug abuse or addiction head injury if you frequently drink alcohol containing drinks kidney disease or trouble passing urine liver disease lung disease, asthma, or breathing problems seizures or epilepsy suicidal thoughts, plans, or attempt; a previous suicide attempt by you or a family member an unusual or allergic reaction to tramadol, codeine, other medicines, foods, dyes, or preservatives or trying to get breast-feeding What should I watch for while using this medicine? Tell your doctor or health animal daycare provider if your pain does not go away, if it gets worse, or if you have new or a different type of pain. You may develop tolerance to the medicine. Tolerance means that you will need a higher dose of the medicine for pain relief. Tolerance is normal and is expected if you take this medicine for a long time. Do not suddenly stop taking your medicine because you may develop a severe reaction. Your body becomes used to the medicine. This does NOT mean you are addicted. Addiction is a behavior related to getting and using a drug for a non-medical reason. If you have pain, you have a medical reason to take pain medicine. Your doctor will tell you how much medicine to take. If your doctor wants you to stop the medicine, the dose will be slowly lowered over time to avoid any side effects. You may get drowsy or dizzy. Do not drive, use machinery, or do anything that needs mental alertness until you know how this medicine affects you. Do not stand or sit up quickly, especially if you are an older patient. This reduces the risk of dizzy or fainting spells. Alcohol can increase or decrease the effects of this medicine. Avoid alcoholic drinks. You may have constipation. Try to have a bowel movement at least every 2 to 3 days. If you do not have a bowel movement for 3 days, call your doctor or health animal daycare provider. Your mouth may get dry. Chewing sugarless gum or sucking hard candy, and drinking plenty of water may help. Contact your doctor if the problem does not go away or is severe. You have been given the following additional information: Gastroenteritis, Non-Infectious (Child) (Adult) Diet, Clear Liquid Diet, Harrell (Adult) Diet, Clear Liquid Ondansetron Oral disintegrating tablet Dicyclomine Hydrochloride Oral tablet Tramadol Hydrochloride Oral tablet (Electronically signed by Camila English A.R.N.P. 10/26/2016 22:55)
== END 2016-10-26 22:47 | disposition home or self-care (01) ==
LOC: ED SRH 19:41
DX: K52.9 Noninfective gastroenteritis and colitis, unspecified (principal)
CPT/HCPCS: 90100; 92235; 92530; 95059; 98428